=== PATIENT | female | born 1995 | race Caucasian/White ===

== ENCOUNTER → 2018-06-24 10:41 | Outpatient (CLI) | payer BC, SELFPAY ==
[2018-06-28 04:07] LABS: Neisseria gonorrhoeae, NAA Negative (Negative)
== END ==
PROVIDERS: Visit Provider Nurse Practitioner Obstetrics & Gynecology
DX: Z01.419 Encounter for gynecological examination (general) (routine) without abnormal findings (principal)
CPT/HCPCS: 87491; 87591

== ENCOUNTER → 2018-08-20 16:18 | Outpatient (CLI) | payer BC, SELFPAY ==
[2018-08-20 20:39] LABS: HCG,Quantitative 77344 mIU/mL
== END ==
PROVIDERS: Visit Provider Nurse Practitioner Obstetrics & Gynecology
DX: Z32.00 Encounter for pregnancy test, result unknown (principal)
CPT/HCPCS: 36415; 84702

== ENCOUNTER → 2018-08-24 17:07 | Outpatient (CLI) | payer BC, OTHER, SELFPAY ==
[2018-08-24 17:34] LABS: Basophils % 0.4 % (0.1-2.0); Eosinophils # 0.1 K/mm3 (0.0-0.4); Hematocrit 39.5 % (37.0-47.0); Lymphocytes # 2.1 K/mm3 (0.7-4.5); Lymphocytes % 24.1 % (10-50); Mean Corpuscular HGB Conc 32.9 g/dL (31.8-35.4); Mean Corpuscular Hemoglobin 30.4 pg (27.0-31.2); Mean Corpuscular Volume 92.3 fl (81-99); Mean Platelet Volume 6.8 fl (7.4-10.4); Monocytes # 0.4 K/mm3 (0.1-1.0); Neutrophils # 6.2 K/mm3 (1.8-7.8); Neutrophils % 70.4 % (37.0-80.0); Platelet Count 262 K/mm3 (142-424); Red Blood Count 4.28 M/mm3 (4.20-5.40); Red Cell Distribution Width 12.6 % (11.5-17.5); White Blood Count 8.8 K/mm3 (4.5-13.0)
[2018-08-26 07:20] LABS: HIV Screen 4th Generation wRfx Non Reactive (Non Reactive)
[2018-08-26 09:43] LABS: Hepatitis B Surface Antigen Negative (Negative); Hepatitis C Antibody <0.1 s/co ratio (0.0-0.9); Rubella Antibodies, IgG <0.90 index (Immune >0.99)
[2018-08-27 06:54] LABS: Rapid Plasma Reagin Ab Titer Non Reactive (NonRea<1:1)
[2018-08-27 15:00] LABS: Neisseria gonorrhoeae, NAA Negative (Negative)
== END ==
PROVIDERS: Visit Provider Nurse Practitioner Obstetrics & Gynecology
DX: Z34.90 Encounter for supervision of normal pregnancy, unspecified, unspecified trimester (principal)
CPT/HCPCS: 36415; 85025; 86592; 86703; 86762; 86850; 87340; 87380; 87491; 87591; G0432

== ENCOUNTER → 2018-09-03 10:12 | Outpatient (CLI) | payer BC, OTHER, SELFPAY ==
--- NOTE | 2018-09-03 10:16 | US_ITS ---
US OB transvaginal HISTORY: ITS.REASON: US OB Dates ORDERING PHYSICIAN: Can Rogers MD PATIENT AGE: 22 years COMPARISON: None FINDINGS: An intrauterine gestational sac is present with a pole with a crown-rump length of 3.27cm correlating to gestational age of 10w2d. heart tones are present with an FHR of 167 bpm's. Yolk sac is noted. The amnion and chorion have not yet fused. Adnexa: Unremarkable. IMPRESSION: Live intrauterine gestation at 10 weeks 2 days as described above. Estimated due date by Ultrasound is 03/30/2019
== END ==
PROVIDERS: PCP Family Medicine Addiction Medicine; Visit Provider Nurse Practitioner Obstetrics & Gynecology
DX: O26.841 Uterine size-date discrepancy, first trimester (principal)
CPT/HCPCS: 76817

== ENCOUNTER → 2018-11-10 14:49 | Outpatient (CLI) | payer BC, OTHER, SELFPAY ==
--- NOTE | 2018-11-10 14:52 | US_ITS ---
US OB /maternal detail: INDICATION: ITS.REASON: US OB Complete ORDERING PHYSICIAN: Can Rogers MD PATIENT AGE: 23 years TECHNIQUE: ultrasound transabdominal scanning. COMPARISON: No previous relevant studies. FINDINGS: Single viable intrauterine gestation. Cephalic position. Placenta: Posterior High placenta grade 1. There is average amount fluid. The cervix appears satisfactory. Closed and measuring 5 cm in length. Complete survey performed and was unremarkable on the submitted images as in PACS. No discrete anomalies identified on survey imaging by technologist. Active fetus. Three-vessel cord with satisfactory umbilical cord insertion. 4- chamber heart noted. Survey of brain & ventricles unremarkable. Face and neck survey unremarkable. Diaphragm and chest views unremarkable. Abdomen: Both kidneys noted and unremarkable. Stomach noted and satisfactory. Spine: Survey of the spine satisfactory with no anomalies identified nor imaged. Both arms and legs noted. Amniotic Fluid: Adequate. Maternal adnexa: No significant findings. Measurements: Average ultrasound age 20w0d. Gestational Age 20w0d. Estimated due date by ultrasound age 0703/30/2019. Estimated weight 319 grams. BPD = 20w0d OFD = 20w5d HC = 19w5d AC = 20w0d FL = 20w0d Growth Percentile= 39% Heart Rate = 144 Cerebellum = 20w2d Humerus = 20w1d HC/AC is 1.17 (1.09-1.26). CI is 75% (70-86%). FL/BPD is 70%. FL/AC is 22%. IMPRESSION: Single live fetus in cephalic presentation with an average ultrasound age of 20 weeks and 0 days. No obvious anomalies. Please see above for detail
== END ==
PROVIDERS: PCP Nurse Practitioner Obstetrics & Gynecology; Visit Provider Nurse Practitioner Obstetrics & Gynecology
DX: Z36.0 Encounter for antenatal screening for chromosomal anomalies (principal)
CPT/HCPCS: 76811

== ENCOUNTER 2018-12-08 12:50 | Outpatient (CLI) | payer BC, OTHER, SELFPAY ==
[2018-12-08 12:59] VITALS: BP 122/70; PULSE 95; RESP 20; O2SAT 96; BMI 30.7
[2018-12-08 13:01] VITALS: BMI 30.7
[2018-12-08 13:10] LABS: Microscopic, Urine URINE MICROSCOPIC (MICROSCOPIC)
[2018-12-08 13:24] LABS: Appearance,Urine CLEAR (Clear); Bilirubin,Urine Negative (Negative); Blood, Urine Negative (Negative); Color,Urine YELLOW (Yellow); Glucose,Urine (UA) Negative (Negative); Ketones,Urine Negative (Negative); Leukocyte Esterase,Urine Negative (Negative); Nitrate,Urine Negative (Negative); PH,Urine 6.5 (5.0-8.5); Protein,Urine Negative (Negative); Specific Gravity, Urine <= 1.005 (1.005-1.030); Urobilinogen,Urine 0.2 EU/dl (0.2)
[2018-12-08 13:37] LABS: Basophils % 0.3 % (0.1-2.0); Eosinophils # 0.1 K/mm3 (0.0-0.4); Eosinophils % 1.6 % (0.1-12.0); Hematocrit 37.7 % (37.0-47.0); Hemoglobin 12.7 g/dL (12.2-16.2); Lymphocytes # 1.8 K/mm3 (0.7-4.5); Lymphocytes % 21.9 % (10-50); Mean Corpuscular HGB Conc 33.6 g/dL (31.8-35.4); Mean Corpuscular Hemoglobin 30.9 pg (27.0-31.2); Mean Corpuscular Volume 91.8 fl (81-99); Mean Platelet Volume 7.3 fl (7.4-10.4); Monocytes # 0.4 K/mm3 (0.1-1.0); Monocytes % 4.3 % (1.7-9.3); Neutrophils # 5.9 K/mm3 (1.8-7.8); Platelet Count 270 K/mm3 (142-424); Red Blood Count 4.11 M/mm3 (4.20-5.40); Red Cell Distribution Width 13.3 % (11.5-17.5); White Blood Count 8.1 K/mm3 (4.8-10.8)
[2018-12-08 13:44] LABS: Alanine Aminotransferase 21 U/L (12-78); Albumin Level 2.8 gm/dL (3.4-5.0); Albumin/Globulin Ratio 0.7 (1.1-1.8); Alkaline Phosphatase 75 U/L (46-116); Anion Gap 14.9 mEq/L (5-15); Aspartate Amino Transferase 20 U/L (15-37); Bilirubin,Total 0.3 mg/dL (0.2-1.0); Blood Urea Nitrogen 8 mg/dL (7-18); Carbon Dioxide 23 mmol/L (21.0-32.0); Chloride 104 mmol/L (98-107); Creatinine Clearance Estimated 222 mL/min (50-200); Creatinine,Serum 0.53 mg/dL (0.55-1.02); Estimated Glomerular Filt Rate 146 ml/min (>60); GFR (African American) 176 ML/MIN (>60); Globulin 4.2 gm/dl (1.3-3.2); Glucose 89 mg/dL (74-106); Potassium 3.9 mmoL/L (3.5-5.1); Sodium 138 mmol/L (136-145)
[2018-12-08 14:47] LABS: Bacteria,Urine Trace /lpf; RBC,Urine Occasional #/hpf (0-3)
== END 2018-12-08 14:35 | disposition home or self-care (01) ==
LOC: OBOUT 12:52 → OB 12:53
PROVIDERS: Visit Provider Nurse Practitioner Obstetrics & Gynecology
DX: O26.92 Pregnancy related conditions, unspecified, second trimester (principal); Z3A.24 24 weeks gestation of pregnancy; R11.0 Nausea; R42 Dizziness and giddiness
CPT/HCPCS: 59025; 80053; 81001; 85025; 96360

== ENCOUNTER 2018-12-10 22:05 | Outpatient (CLI) | payer BC, OTHER, SELFPAY ==
[2018-12-10 22:52] VITALS: BMI 29.8
[2018-12-10 22:57] VITALS: BP 139/75; PULSE 110; RESP 18; TEMP 37.2; O2SAT 99
[2018-12-10 23:00] LABS: Microscopic, Urine URINE MICROSCOPIC (MICROSCOPIC)
[2018-12-10 23:03] LABS: Appearance,Urine CLEAR (Clear); Bilirubin,Urine Negative (Negative); Blood, Urine Negative (Negative); Color,Urine YELLOW (Yellow); Glucose,Urine (UA) Negative (Negative); Ketones,Urine 3+ (Negative); Leukocyte Esterase,Urine Negative (Negative); Nitrate,Urine Negative (Negative); Protein,Urine Negative (Negative); Specific Gravity, Urine 1.025 (1.005-1.030); Urobilinogen,Urine 0.2 EU/dl (0.2)
[2018-12-10 23:07] LABS: Bacteria,Urine Trace /lpf; WBC,Urine Occasional #/hpf (0-3)
[2018-12-10 23:08] LABS: Anion Gap 16.6 mEq/L (5-15); Blood Urea Nitrogen 9 mg/dL (7-18); Carbon Dioxide 23 mmol/L (21.0-32.0); Chloride 100 mmol/L (98-107); Creatinine Clearance Estimated 222 mL/min (50-200); Creatinine,Serum 0.53 mg/dL (0.55-1.02); Estimated Glomerular Filt Rate 146 ml/min (>60); GFR (African American) 176 ML/MIN (>60); Glucose 83 mg/dL (74-106); Potassium 3.6 mmoL/L (3.5-5.1); Sodium 136 mmol/L (136-145)
[2018-12-10 23:14] LABS: Basophils % 0.2 % (0.1-2.0); Eosinophils % 0.1 % (0.1-12.0); Lymphocytes # 0.8 K/mm3 (0.7-4.5); Lymphocytes % 7.6 % (10-50); Mean Corpuscular HGB Conc 34.1 g/dL (31.8-35.4); Mean Corpuscular Hemoglobin 30.8 pg (27.0-31.2); Mean Corpuscular Volume 90.3 fl (81-99); Mean Platelet Volume 6.8 fl (7.4-10.4); Monocytes # 0.3 K/mm3 (0.1-1.0); Neutrophils # 8.9 K/mm3 (1.8-7.8); Neutrophils % 89.1 % (37.0-80.0); Platelet Count 253 K/mm3 (142-424); Red Blood Count 4.21 M/mm3 (4.20-5.40); Red Cell Distribution Width 13.4 % (11.5-17.5)
[2018-12-10 23:21] VITALS: BMI 29.8
[2018-12-10 23:24] LABS: MANUAL DIFFERENTIAL MANUAL DIFFERENTIAL (MANUAL DIFF)
[2018-12-11 03:50] LABS: Anisocytosis 1+; Lymphocytes % 12 % (10-50); Neutrophils % 88 % (42-76); Platelet Estimate Normal; Total Cells Counted 100
== END 2018-12-11 00:15 | disposition home or self-care (01) ==
LOC: OBOUT 22:10 → OB 22:11
PROVIDERS: PCP Nurse Practitioner Obstetrics & Gynecology; Visit Provider Nurse Practitioner Obstetrics & Gynecology
DX: O26.892 Other specified pregnancy related conditions, second trimester (principal); Z3A.24 24 weeks gestation of pregnancy; R11.2 Nausea with vomiting, unspecified; M54.5 Low back pain
CPT/HCPCS: 59025; 80048; 81001; 85007; 85025; 87275; 87276; 96360; J2405

== ENCOUNTER → 2019-01-04 08:13 | Outpatient (CLI) | payer BC, OTHER, SELFPAY ==
[2019-01-04 08:37] LABS: Glucose,Fasting 81 mg/dL (60-105)
[2019-01-04 10:21] LABS: Glucose 1 Hour 101 mg/dL (74-106)
== END ==
PROVIDERS: Visit Provider Nurse Practitioner Obstetrics & Gynecology
DX: Z34.90 Encounter for supervision of normal pregnancy, unspecified, unspecified trimester (principal)
CPT/HCPCS: 36415; 82951

== ENCOUNTER → 2019-03-08 16:50 | Outpatient (CLI) | payer BC, SELFPAY | PROVIDERS: Visit Provider Nurse Practitioner Obstetrics & Gynecology | DX: Z34.90 Encounter for supervision of normal pregnancy, unspecified, unspecified trimester (principal) | CPT/HCPCS: 86403 ==

== ENCOUNTER 2019-03-22 23:52 | Inpatient (IN) ==
[2019-03-23 02:10] LABS: Basophils % 0.3 % (0.1-2.0); Eosinophils # 0.2 K/mm3 (0.0-0.4); Hematocrit 36.7 % (37.0-47.0); Hemoglobin 11.7 g/dL (12.2-16.2); Lymphocytes # 1.8 K/mm3 (0.7-4.5); Lymphocytes % 24.1 % (10-50); Mean Corpuscular HGB Conc 31.8 g/dL (31.8-35.4); Mean Corpuscular Volume 92.3 fl (81-99); Mean Platelet Volume 8.2 fl (7.4-10.4); Monocytes # 0.4 K/mm3 (0.1-1.0); Monocytes % 4.7 % (1.7-9.3); Neutrophils # 5.2 K/mm3 (1.8-7.8); Neutrophils % 68.9 % (37.0-80.0); Platelet Count 259 K/mm3 (142-424); Red Blood Count 3.98 M/mm3 (4.20-5.40); Red Cell Distribution Width 14.2 % (11.5-17.5); White Blood Count 7.6 K/mm3 (4.8-10.8)
[2019-03-23 02:50] LABS: Microscopic, Urine URINE MICROSCOPIC (MICROSCOPIC)
[2019-03-23 02:54] LABS: Appearance,Urine CLEAR (Clear); Bilirubin,Urine Negative (Negative); Blood, Urine Negative (Negative); Color,Urine YELLOW (Yellow); Glucose,Urine (UA) Negative (Negative); Ketones,Urine Negative (Negative); Leukocyte Esterase,Urine Negative (Negative); Protein,Urine Negative (Negative); Specific Gravity, Urine 1.025 (1.005-1.030)
[2019-03-23 03:00] LABS: Bacteria,Urine Trace /lpf; Squamous Epithelial Cell,Urine Occasional #/hpf (0-5); WBC,Urine Occasional #/hpf (0-3)
[2019-03-23 03:03] LABS: Amphetamine/Metha Screen,Urine Negative ng/mL (<1000); Barbiturates Screen,Urine Negative ng/mL (<200); Benzodiazepines Screen,Urine Negative ng/mL (<200); Cannabinoid Screen,Urine Negative ng/mL (<50); Cocaine Screen,Urine Negative ng/mL (<300); Methadone Screen,Urine Negative ng/mL (<300); Opiate Screen,Urine Negative ng/mL (<300); Phencyclidine Screen,Urine Negative ng/mL (<25)
--- NOTE | 2019-03-23 05:05 | Progress Note ---
Labor Note - Subjective: Date: 03/23/19 Time: 05:04 regular contraction - Objective: NST:: Reactive Contractions:: every 2-3 minutes Cervical Dilation:: 2-3 Effacement:: 75% Station: -2 Membranes: artificially ruptured - Fetus: Monitoring?: Yes monitoring type:: External - Assessment: Labor progressing?: Yes Cephalopelvic disproportion?: No Patient Problems: All Active Problems (Updated 03/15/19 @ 16:53 by Can Rogers MD) (Acute) - Plan: Anesthesia for epidural?: Yes Continue to labor down?: Yes Plan for ?: No Continue to monitor?: Yes Start pushing?: No
--- NOTE | 2019-03-23 05:07 | History & Physical Report ---
OB - H&P: HPI Antepartum - History of Present Illness Chief complaint: Contractions History of present illness: She is a 23-year-old 3 para 2 at 39 weeks gestational age. She arrived having regular contractions. She is josephine every 2 minutes. She is found to be 2 to 3 cm dilated 75% Station -2. - History of Present Criteria for establishing EDC:: LMP confirmed by 1st trimester US care: good care Ultrasounds: normal 1st trimester US, normal mid trimester US Obstetrical complications: none Medical complications: none - Labs Blood type: O (+) positive Rubella: nonimmune RPR/VDRL: nonreactive GBS status: negative HBsAG: negative [facility] History I have reviewed the patient's past medical history: Yes Medical History: Reports:: Depression *Have you ever received a pneumonia vaccine?: No *Have you received a flu vaccine this season?: Yes Other Surgeries: Yes: Other. No: Amputation: No Fractures: No - *Social History Smoking Status: Never smoker Alcohol Intake: never Substance Use Type: denies use *Occupational Status:: unemployed *Travel in the last 8 weeks: None - Psychiatric History Pschychiatric History:: Reports:: Depression Family Hx:: Diabetes, Coronary Artery Disease, Cancer, Stroke Para: 2 Review of Systems - Review of Systems Review of systems:: pertinent systems reviewed and negative unless documented below Meds Home Medications Medication Instructions Recorded Confirmed Type 1 tab PO DAILY 09/27/18 03/15/19 History vitamin,calcium,rwhztdcr-ebeo-rwmqt acid tablet Ferrous Sulfate 325 mg PO DAILY 12/08/18 03/15/19 History ranitidine 150 mg tablet 150 mg PO DAILY #60 tab 02/21/19 03/15/19 Rx Allergies Allergy/AdvReac Type Severity Reaction Status Date / Time acetaminophen [From Percocet] Allergy Unknown itching Verified 03/15/19 16:16 oxycodone [From Percocet] Allergy Unknown itching Verified 03/15/19 16:16 OB - H&P: Exam - Constitutional no acute distress - Routine HEENT Exam Head: Present: normocephalic Eye: Present: EOMI, PERRL ENT: Present: mucous membranes moist - Routine Neck Exam Present: supple, full ROM - Routine Respiratory Exam Absent: accessory muscle use (good air entry bilaterally), respiratory distress, wheezes, crackles - Routine Cardiovascular Exam Present: RRR. Absent: murmur - Routine Abdominal Exam Present: soft, normoactive bowel sounds. Absent: tenderness, distended, guarding - Routine Rectal Exam Patient deferred: visual exam, digital exam - Routine Exam Patient deferred: external exam, groin exam, perineal exam - Routine Extremities Exam Present: full ROM. Absent: cyanosis, edema - Routine Skin Exam Present: intact. Absent: cyanosis - Routine Neurological Exam Present: alert, oriented X3 - Routine Psychiatric Exam Present: normal affect OB - Results - Labs Labs: Short CBC 03/23/19 Range/Units 01:56 WBC 7.6 (4.8-10.8) K/mm3 Hgb 11.7 L (12.2-16.2) g/dL Hct 36.7 L (37.0-47.0) % Plt Count 259 (142-424) K/mm3 Urine 03/23/19 Range/Units 02:00 Urine Color Yellow (Yellow) Urine Appearance Clear (Clear) Urine pH 6.0 (5.0-8.5) Ur Specific [employer] 1.025 (1.005-1.030) Urine Protein Negative (Negative) Urine Glucose (UA) Negative (Negative) OB - A/P Antepartum (1) Normal delivery Current visit: Yes Status: Acute - Additional Plan Planning to breastfeed?: Yes Plan: expectant management
--- NOTE | 2019-03-23 09:02 | Progress Note ---
Labor Note - Subjective: Date: 03/23/19 Time: 08:30 regular contraction - Objective: NST:: Reactive Effacement:: 100% Membranes: artificially ruptured - Assessment: Labor progressing?: Yes Cephalopelvic disproportion?: No Patient Problems: All Active Problems Normal delivery (Acute) (Acute) - Plan: Anesthesia for epidural?: No Plan for ?: No Continue to monitor?: Yes Start pushing?: No
--- NOTE | 2019-03-23 11:22 | Progress Note ---
[facility] Anesthesia Checklist - Patient Identification Patient Identification: Arm Band, Verbal (Name & ) - Structural Data Admitted From: Inpatient Planned Operative Procedure/s: labor epidural Consent for Planned Operative Procedure(s) Verified: Yes Verified Documents: History and Physical - Additional verifications Patient : Yes Anesthesia Reactions: No Hx Blood Transfusions: No Blood Transfusion Reaction: No Cephalosporin Allergy: No Previous Colonoscopy: No - Cardiovascular Assessment Heart Sounds: S1 & S2 Pulse Strength: Baseline Pulse Rhythm: Regular Peripheral Edema: Yes - Airway Assessment C-Spine Mobility Assessed: Yes TMJ Mobility Assessed: Yes Dentition: Good Dentition - Neurological Assessment Level of Consciousness: Awake, Alert, Appropriate Hx Seizures: No Numbness or tingling in extremities: No - Anesthesia Plan Anesthesia Risk discussed: Yes Anesthesia Plan: Verified ASA Class: II Anesthesia Type: Epidural [facility] History I have reviewed the patient's past medical history: Yes Medical History: Reports:: Depression *Have you ever received a pneumonia vaccine?: No *Have you received a flu vaccine this season?: Yes Other Surgeries: Yes: Other. No: Amputation: No Fractures: No - *Social History Smoking Status: Never smoker Alcohol Intake: never Substance Use Type: denies use *Occupational Status:: unemployed *Travel in the last 8 weeks: None - Psychiatric History Pschychiatric History:: Reports:: Depression Family Hx:: Diabetes, Coronary Artery Disease, Cancer, Stroke Para: 2
--- NOTE | 2019-03-23 12:19 | Progress Note ---
Labor Note - Subjective: Date: 03/23/19 Time: 12:18 regular contraction - Objective: NST:: Reactive Contractions:: every 2-3 minutes Cervical Dilation:: 9 Effacement:: 100% Station: 0 Membranes: artificially ruptured - Fetus: Monitoring?: Yes monitoring type:: External - Assessment: Labor progressing?: Yes Cephalopelvic disproportion?: No Patient Problems: All Active Problems Normal delivery (Acute) (Acute) - Plan: Anesthesia for epidural?: Yes Continue to labor down?: Yes Plan for ?: No Continue to monitor?: Yes Start pushing?: No
--- NOTE | 2019-03-23 13:37 | Procedure Note ---
- Delivery Note Delivery Date:: 03/23/19 Delivery Time:: 13:27 Anesthesia Type: Epidural Was labor medically induced?: No Induction method: none Gestational age (weeks): 39 delivered prior to 39 weeks?: No Justification for early elective delivery:: Active Labor Gender: Male at 1 minute: 8 at 5 minutes: 9 AF:: Clear fluid Delivery Procedure:: She is a 23-year-old 3 para 2 at 39 weeks gestational age. She arrived having regular contractions. She was observed overnight. She had her membranes ruptured and was augmented with oxytocin. She progressed to full dilation and delivered spontaneously a liveborn male child at 1:27 PM in the afternoon of March 23, 2019. On deliver the head the anterior shoulder then delivered followed by the rest of infant's body atraumatically. The oropharynx and nasopharynx were bulb suction. The baby cried spontaneously. We allowed the cord to continue to pulsate for approximately 1 minute. The cord was then doubly clamped and cut. The baby was then placed on the mother's abdomen for further care and the nurses assigned Apgars of 8 at 1 minute and 9 at 5 minutes. We then obtained cord blood as well as cord pH. Using gentle traction on the cord and countertraction the fundus I was able to easily deliver the placenta intact. It had a normal three-vessel cord. There were no perineal or vaginal lacerations. She has O+ blood, she is rubella nonimmune. She is group B cryptococcus negative. Her senior water/wastewater engineer is Dr. Ram. Estimated blood loss is less than 200 cc. Placental Delivery Description: Spontaneous
--- NOTE | 2019-03-23 17:53 | Discharge Summary ---
General - General Admission date:: 03/23/19 Discharge date: 03/25/19 HPI HPI: She is a 23-year-old 3 now para 3 who was 39 weeks gestational age. She arrived in active labor. She is josephine every 2 minutes. Hospital Course Hospital Course: She had her membranes ruptured and progressed to full dilation. She progressed under labor epidural to full dilation and delivered spontaneously a liveborn male child at 1:27 PM in the afternoon of March 23, 2019. The baby weighed 8 pounds 6 ounces and had Apgars of 8 at 1 and 9 at 5 minutes. Baby was 20 inches long. pH was 7.42. She has O+ blood, she is rubella nonimmune and will receive MMR prior to discharge. She is group B stopcock is negative. Her childcare attendant is Dr. Ram. Her condition on discharge is stable. Rhogam Administration: Not Indicated Objective no acute distress Results Labs on day of discharge: Labs from last 24 hours 03/23/19 03/23/19 03/23/19 13:30 02:00 02:00 WBC RBC Hgb Hct MCV MCH MCHC RDW Plt Count MPV Neut % (Auto) Lymph % (Auto) [place] % (Auto) Eos % (Auto) Baso % (Auto) Neut # (Auto) Lymph # (Auto) [place] # (Auto) Eos # (Auto) Baso # (Auto) Cord ABG pH 7.42 Urine Color Yellow Urine Appearance Clear Urine pH 6.0 Ur Specific [place] 1.025 Urine Protein Negative Urine Glucose (UA) Negative Urine Ketones Negative Urine Blood Negative Urine Nitrate Negative Urine Bilirubin Negative Urine Urobilinogen 1.0 Ur Leukocyte Esterase Negative Urine WBC Occasional Ur Squamous Epith Cells Occasional Urine Bacteria Trace Urine Opiates Screen Negative Urine Methadone Screen Negative Ur Barbituates Screen Negative Ur Phencyclidine Scrn Negative Ur Amphetamines Screen Negative U Benzodiazepines Scrn Negative Urine Cocaine Screen Negative U Marijuana (THC) Screen Negative Blood Type Antibody Screen 03/23/19 03/23/19 01:56 01:56 WBC 7.6 RBC 3.98 L Hgb 11.7 L Hct 36.7 L MCV 92.3 MCH 29.3 MCHC 31.8 RDW 14.2 Plt Count 259 MPV 8.2 Neut % (Auto) 68.9 Lymph % (Auto) 24.1 [place] % (Auto) 4.7 Eos % (Auto) 2.0 Baso % (Auto) 0.3 Neut # (Auto) 5.2 Lymph # (Auto) 1.8 [place] # (Auto) 0.4 Eos # (Auto) 0.2 Baso # (Auto) 0.0 Cord ABG pH Urine Color Urine Appearance Urine pH Ur Specific [place] Urine Protein Urine Glucose (UA) Urine Ketones Urine Blood Urine Nitrate Urine Bilirubin Urine Urobilinogen Ur Leukocyte Esterase Urine WBC Ur Squamous Epith Cells Urine Bacteria Urine Opiates Screen Urine Methadone Screen Ur Barbituates Screen Ur Phencyclidine Scrn Ur Amphetamines Screen U Benzodiazepines Scrn Urine Cocaine Screen U Marijuana (THC) Screen Blood Type O Positive Antibody Screen Negative DS: Diagnosis - Discharge Diagnosis (1) Normal delivery Status: Acute Discharge Plan - Patient Discharge Instructions ACTIVITY: Ambulate as tolerated DIET: continue same diet - Follow up Plan Disposition: Home, Self-Shelter Medications: Home Medications Medication Instructions Recorded Confirmed Type 1 tab PO DAILY 09/27/18 03/23/19 History vitamin,calcium,bpigorlp-bhsv-jbyaw acid tablet Ferrous Sulfate 325 mg PO DAILY 12/08/18 03/23/19 History raNITIdine HCl [Ranitidine HCl] 150 mg PO DAILY 03/23/19 03/23/19 History Prescriptions/Medication Reconciliation: Continued vitamin,calcium,ismwnhrb-zjce-sccgf acid tablet 1 tab PO DAILY raNITIdine HCl [Ranitidine HCl] 150 mg PO DAILY Ferrous Sulfate 325 mg PO DAILY
[2019-03-24 07:40] LABS: Hematocrit 37.6 % (37.0-47.0); Hemoglobin 11.9 g/dL (12.2-16.2)
--- NOTE | 2019-03-24 08:52 | Progress Note ---
Internal Medicine - PN: Subj *Date: 03/24/19 *Time: 08:51 (This is day #1. The patient is afebrile. Vital signs stable. Abdomen soft. Uterine fundus involuting well. Lochia normal. The baby is breast-feeding and doing well. Hemoglobin 11.9 g. During the night the patient's uncle suddenly, and the patient considered early discharge. However, upon reflection she elects to stay until tomorrow.) Exam Vital signs and Labs for Last 24 Hours: Temp Pulse Resp BP Pulse Ox 97.8 F 88 17 129/78 99 03/24/19 07:52 03/24/19 07:52 03/24/19 07:52 03/24/19 07:52 03/24/19 07:52 Laboratory Results - last 24 hr 03/23/19 13:30: Cord ABG pH 7.42 03/24/19 07:10: Hgb 11.9 L, Hct 37.6 I & O for Last 24 hours: Intake & Output 03/21/19 03/22/19 03/23/19 03/24/19 11:59 11:59 11:59 11:59 Weight 199 lb Assessment and Plan (1) Normal delivery Current visit: Yes Status: Acute Category: Medical Code(s): O80 - Encounter for full-term uncomplicated delivery
[2019-03-25 03:12] VITALS: BP 115/63
--- NOTE | 2019-03-25 06:25 | Progress Note ---
Internal Medicine - PN: Subj *Date: 03/25/19 *Time: 06:24 (This is day #2. The patient is afebrile. Vital signs stable. Abdomen soft. Lochia normal. Uterine fundus involuting well. Breast- feeding. Hemoglobin 11.9 g, but clinically stable. She will be discharged today.) Exam Vital signs and Labs for Last 24 Hours: Temp Pulse Resp BP Pulse Ox 97.7 F 59 L 18 115/63 98 03/25/19 03:03 03/25/19 03:03 03/25/19 03:03 03/25/19 03:03 03/24/19 19:52 Laboratory Results - last 24 hr 03/24/19 07:10: Hgb 11.9 L, Hct 37.6 I & O for Last 24 hours: Intake & Output 03/22/19 03/23/19 03/24/19 03/25/19 11:59 11:59 11:59 11:59 Weight 199 lb Assessment and Plan (1) Normal delivery Current visit: Yes Status: Acute Category: Medical Code(s): O80 - Encounter for full-term uncomplicated delivery
== END 2019-03-25 12:00 | disposition home or self-care (01) | DRG 807 ==
LOC: OB 03-23 01:23
PROVIDERS: ADMIT Nurse Practitioner Obstetrics & Gynecology; ATTEND Nurse Practitioner Obstetrics & Gynecology
CPT/HCPCS: 59025; 80305; 81001; 82800; 85014; 85018; 85025; 86850; 90707; 94761; J0595

== ENCOUNTER → 2020-01-11 16:14 | Outpatient (CLI) | payer BC, SELFPAY ==
[2020-01-13 05:37] LABS: Hep A Ab, IgM Negative (Negative); Hepatitis B Core Antibody IgM Negative (Negative); Hepatitis B Surface Antigen Negative (Negative)
[2020-01-13 06:18] LABS: HIV Screen 4th Generation wRfx Non Reactive (Non Reactive); Hepatitis C Antibody <0.1 s/co ratio (0.0-0.9)
[2020-01-13 14:34] LABS: HSV 2 IgG, Type Spec <0.91 index (0.00-0.90); Rapid Plasma Reagin Ab Titer Non Reactive (NonRea<1:1)
[2020-01-14 11:16] LABS: Neisseria gonorrhoeae, NAA Negative (Negative)
== END ==
PROVIDERS: Visit Provider Nurse Practitioner Obstetrics & Gynecology
DX: Z72.51 High risk heterosexual behavior (principal)
CPT/HCPCS: 36415; 80074; 86592; 86695; 86703; 86790; 87491; 87591; G0432

== ENCOUNTER → 2021-03-01 13:04 | Outpatient (CLI) | payer BC, SELFPAY ==
[2021-03-01 13:25] LABS: Basophils # 0.1 K/mm3 (0-0.2); Basophils % 0.8 % (0.1-2.0); Eosinophils # 0.2 K/mm3 (0.0-0.4); Eosinophils % 2.2 % (0.1-12.0); Hematocrit 42.3 % (37.0-47.0); Lymphocytes # 2.1 K/mm3 (0.7-4.5); Mean Corpuscular HGB Conc 33.3 g/dL (31.8-35.4); Mean Corpuscular Hemoglobin 30.2 pg (27.0-31.2); Mean Platelet Volume 7.5 fl (7.4-10.4); Monocytes # 0.3 K/mm3 (0.1-1.0); Monocytes % 4.5 % (1.7-9.3); Neutrophils # 4.8 K/mm3 (1.8-7.8); Neutrophils % 64.7 % (37.0-80.0); Platelet Count 265 K/mm3 (142-424); Red Blood Count 4.64 M/mm3 (4.20-5.40); Red Cell Distribution Width 12.5 % (11.5-17.5); White Blood Count 7.5 K/mm3 (4.8-10.8)
[2021-03-01 13:51] LABS: HCG Qualitative, Serum Negative (Negative)
[2021-03-01 13:54] LABS: Anion Gap 8.3 mEq/L (5-15); Blood Urea Nitrogen 15 mg/dl (7-17); Calcium 9.1 mg/dl (8.4-10.2); Carbon Dioxide 28 mmol/L (22.0-30.0); Chloride 107 mmol/L (98-107); Estimated Glomerular Filt Rate 78 ml/min (>60); GFR (African American) 94 ML/MIN (>60); Glucose 97 mg/dl (74-100); Potassium 4.3 mmoL/L (3.5-5.1); Sodium 139 mmol/L (136-145)
== END ==
PROVIDERS: Visit Provider Nurse Practitioner Obstetrics & Gynecology
DX: Z01.818 Encounter for other preprocedural examination (principal); Z11.52 Encounter for screening for COVID-19; R87.613 High grade squamous intraepithelial lesion on cytologic smear of cervix (HGSIL)
CPT/HCPCS: 36415; 80048; 84703; 85025; U0003

== ENCOUNTER → 2021-03-04 07:24 | Day surgery (SDC) | payer BC, SELFPAY ==
[2021-02-26 12:13] VITALS: BMI 33.3
--- NOTE | 2021-03-04 08:39 | SUR.PREOP ---
Patient was cancelled by Dr Rogers due to patient having broken ankle over the weekend and had surgery to repair. Dr Rogers spoke with patient and advised to reschedule due to positioning.
== END ==
PROVIDERS: PCP Family Medicine; Visit Provider Nurse Practitioner Obstetrics & Gynecology
PROC: 0UBC7ZZ Excision of Cervix, Via Natural or Artificial Opening (ICD-10-PCS; CPT 57520; principal; 2021-03-04 08:45)
DX: Z53.8 Procedure and treatment not carried out for other reasons (principal)

== ENCOUNTER 2021-05-13 07:25 | Day surgery (SDC) | payer BC, SELFPAY ==
[2021-05-09 11:51] VITALS: BMI 34.2
[2021-05-13] VITALS (9 sets, daily range): BP systolic 123–166; BP diastolic 66–85; PULSE 59–119; RESP 14–18; TEMP 36.1–37.1; O2SAT 99–100
--- NOTE | 2021-05-13 07:01 | HMH.ANESCL ---
[facility] Anesthesia Checklist - Patient Identification Patient Identification: Arm Band - Structural Data Admitted From: Home Planned Operative Procedure/s: Cone biopsy Consent for Planned Operative Procedure(s) Verified: Yes - NPO Status Verified Time NPO: 00:00 - Additional verifications Anesthesia Reactions: No Hx Blood Transfusions: No Blood Transfusion Reaction: No - Airway Assessment C-Spine Mobility Assessed: Yes TMJ Mobility Assessed: Yes Dentition: Good Dentition - Neurological Assessment Level of Consciousness: Awake Hx Seizures: No Numbness or tingling in extremities: No - Anesthesia Plan Anesthesia Risk discussed: Yes Anesthesia Plan: Verified ASA Class: II Anesthesia Type: General [facility] History I have reviewed the patient's past medical history: Yes Medical History: Reports:: Depression Denies:: Cancer, Diabetes Mellitus Type 1, Diabetes Mellitus Type 2, Internal Pacemaker, MRSA, Seizures *Have you ever received a pneumonia vaccine?: No *Have you received a flu vaccine this season?: No Other Medical History: Denies: Blood Transfusion Reaction Anesthesia experience/problems:: None Other Surgeries: Yes: Other. No: , Pacemaker Amputation: No Fractures: No - *Social History Last grade of school completed: High school graduate Smoking Status: Never smoker Alcohol Intake: current Alcohol Intake Frequency:: holidays/special occasions only Substance Use Type: denies use *Occupational Status:: employed Housing: house Household Members: family *Travel in the last 8 weeks: None - Psychiatric History Pschychiatric History:: Reports:: Depression Family Hx:: No significant family history
[2021-05-13 07:35] LABS: Coronavirus 19, PCR Not Detected (NotDetected); Influenza A, PCR Not Detected (NotDetected); Influenza B, PCR Not Detected (NotDetected)
[2021-05-13 08:04] LABS: Basophils # 0.1 K/mm3 (0-0.2); Basophils % 0.8 % (0.1-2.0); Eosinophils # 0.2 K/mm3 (0.0-0.4); Eosinophils % 2.9 % (0.1-12.0); Hemoglobin 14.3 g/dL (12.2-16.2); Lymphocytes % 30.7 % (10-50); Mean Corpuscular HGB Conc 32.5 g/dL (31.8-35.4); Mean Corpuscular Hemoglobin 30.7 pg (27.0-31.2); Mean Corpuscular Volume 94.5 fl (81-99); Mean Platelet Volume 7.8 fl (7.4-10.4); Monocytes # 0.4 K/mm3 (0.1-1.0); Monocytes % 5.4 % (1.7-9.3); Neutrophils % 60.2 % (37.0-80.0); Platelet Count 287 K/mm3 (142-424); Red Blood Count 4.66 M/mm3 (4.20-5.40); Red Cell Distribution Width 12.8 % (11.5-17.5); White Blood Count 6.6 K/mm3 (4.8-10.8)
[2021-05-13 08:36] LABS: Urine Pregnancy, HCG Qual. Negative (Negative)
[2021-05-13 08:46] LABS: Chloride 105 mmol/L (98-107); Potassium 4.4 mmoL/L (3.5-5.1); Sodium 140 mmol/L (136-145)
[2021-05-13 08:49] LABS: Anion Gap 12.4 mEq/L (5-15); Blood Urea Nitrogen 19 mg/dl (7-17); Calcium 9.1 mg/dl (8.4-10.2); Carbon Dioxide 27 mmol/L (22.0-30.0); Creatinine Clearance Estimated 161 mL/min (50-200); Estimated Glomerular Filt Rate 89 ml/min (>60); GFR (African American) 108 ML/MIN (>60); Glucose 97 mg/dl (74-100)
--- NOTE | 2021-05-13 09:23 | HMH.OPNOTE ---
Date of procedure: 05/13/21 Pre-op Diagnosis:: High-grade squamous intraepithelial lesion Post-op Diagnosis:: High-grade squamous intraepithelial lesion Procedure performed:: Cone biopsy and endocervical curettage, removal of Mirena IUD. Surgeon:: Can Rogers MD Inspector Optical Instrument(s):: None BILLBOARD ERECTOR HELPER:: Jake Rosenbaum Anesthesia: LMA Estimated blood loss (mL): 25 Clinical Note:: She is a 25-year-old 3 para 3 who had HGSIL on a Pap smear confirmed with biopsy. As result of that she was offered cone biopsy and endocervical curettage. Operative findings:: She had a normal-appearing cervix. There were some acetowhite areas on application Lugol solution. Operative note:: She was taken the operating room where LMA anesthesia was found be adequate. She was prepped Theresa sterile fashion lithotomy position. Weighted speculum is placed in vagina and the anterior lip of the cervix was grasped with a tenaculum. I removed her Mirena IUD. I injected approximate 20 cc of 1% Xylocaine with epinephrine circumferentially about the cervix. I applied Lugol solution to the cervix. And using an 11 blade I made a circumferential incision around the cervical os approximately 12 mm in diameter. I then cut the base of this cone with a knife. This was sent to pathology. I then performed a gentle ECC. Then using cautery I cauterized the edges of the exocervix. I then inserted 4 sutures of 2-0 Vicryl circumferentially about the cervix. At the 12 o'clock position I took an outside inside bite and then from inside outside at the 3 o'clock position. I did this around the cervix 4 times. I then placed Monsel solution into the cervical os. She tolerate procedure well and was taken recovery room in excellent condition. All sponge, instrument and needle counts were correct. The estimated blood loss was approximate 25 cc. Condition: stable Disposition: PACU Specimens:: Cone biopsy. Endocervical curettage Complications:: None
--- NOTE | 2021-05-13 09:29 | HMH.ANESI ---
[facility] Anesthesia Record Part I Intake, IV Amount: 500 Estimated blood loss (mL): 25 Urine output (mL): 0 Blood Pressure: 123/81 SaO2: 100 Pulse Rate: 96 Respiratory Rate: 14 Temperature: 97.3 F Patient is:: Drowsy Stable to PACU at:: 09:23
--- NOTE | 2021-05-14 10:16 | P.PN_ITS ---
[facility] Anesthesia Record Part II Discharge Time: 09:58 Destination: Surgical Day Care (OP Surgery) PACU nurse assessment reviewed?: Yes Patient Condition:: Good Anesthesia Complications:: None Swallowing reflex intact?: Yes Cyanosis?: No Blood Pressure: 131/82 Pulse Rate: 66 Temperature: 97.3 F Mental Status: Alert & Oriented Pain level:: 2 Nausea and/or vomitting:: None Intake, IV Amount: 50
[2021-05-14 10:17] VITALS: BP 131/82; PULSE 66; TEMP 36.3
== END 2021-05-13 10:40 | disposition home or self-care (01) ==
LOC: OR 07:27
PROVIDERS: PCP Family Medicine; Visit Provider Nurse Practitioner Obstetrics & Gynecology
PROC: 0UBC7ZZ Excision of Cervix, Via Natural or Artificial Opening (ICD-10-PCS; CPT 57520; principal; 2021-05-13 07:30)
DX: R87.613 High grade squamous intraepithelial lesion on cytologic smear of cervix (HGSIL) (principal); F32.9 Major depressive disorder, single episode, unspecified; Z97.5 Presence of (intrauterine) contraceptive device; Z88.6 Allergy status to analgesic agent
CPT/HCPCS: 57500; 36415; 80048; 81025; 85025; 96374; J2405; U0003

== ENCOUNTER → 2021-11-26 11:39 | Outpatient (CLI) | payer BC, SELFPAY ==
[2021-11-26 12:26] LABS: Basophils # 0.1 K/mm3 (0-0.2); Basophils % 0.7 % (0.1-2.0); Eosinophils # 0.1 K/mm3 (0.0-0.4); Hematocrit 40.6 % (37.0-47.0); Hemoglobin 13.4 g/dL (12.2-16.2); Lymphocytes # 1.9 K/mm3 (0.7-4.5); Lymphocytes % 20.8 % (10-50); Mean Corpuscular Hemoglobin 31.2 pg (27.0-31.2); Mean Corpuscular Volume 94.5 fl (81-99); Monocytes # 0.3 K/mm3 (0.1-1.0); Monocytes % 3.5 % (1.7-9.3); Neutrophils # 6.8 K/mm3 (1.8-7.8); Platelet Count 257 K/mm3 (142-424); Red Blood Count 4.29 M/mm3 (4.20-5.40); Red Cell Distribution Width 13.3 % (11.5-17.5); White Blood Count 9.2 K/mm3 (4.8-10.8)
[2021-11-27 08:18] LABS: HIV Screen 4th Generation wRfx Non Reactive (Non Reactive)
[2021-11-27 11:14] LABS: Hepatitis B Surface Antigen Negative (Negative); Hepatitis C Antibody <0.1 s/co ratio (0.0-0.9); Rapid Plasma Reagin Ab Titer Non Reactive (NonRea<1:1)
[2021-11-28 07:35] LABS: HSV 2 IgG, Type Spec <0.91 index (0.00-0.90); Rubella Antibodies, IgG 1.83 index (Immune >0.99)
== END ==
LOC: LAB 11:40
PROVIDERS: Visit Provider Nurse Practitioner Obstetrics & Gynecology
DX: Z34.90 Encounter for supervision of normal pregnancy, unspecified, unspecified trimester (principal)
CPT/HCPCS: 36415; 85025; 86592; 86695; 86703; 86762; 86790; 86850; 87340; 87380; G0432

== ENCOUNTER → 2021-12-03 15:19 | Outpatient (CLI) | payer BC, SELFPAY ==
--- NOTE | 2021-12-03 15:20 | US_ITS ---
FINAL REPORT CLINICAL HISTORY: US OB before 14 wks for Dates/Confirmation FINDINGS: Sonographic images of the pelvis were obtained. A single, living intrauterine is noted. A yolk sac is present and measures 0.5 cm. [place] to rump length measures 1.1 cm which corresponds to 7 weeks 2 days gestation. Heartbeat is identified and measures 153 beats per minute. The right ovary measures 4.7 cm. There is a right ovarian cyst measuring 3.3 cm which may represent a corpus luteum cyst. The left ovary is within normal limits measuring 2.5 cm. IMPRESSION: Single, living, intrauterine gestation with 8 weeks 3 days gestational age. Reviewed, Interpreted and Dictated by Remy Guillen III, MD Transcribed by Melina Ladd Authenticated by Remy Guillen III, MD on 12/03/2021 04:54:[address] [facility]
== END ==
LOC: RAD 15:20
PROVIDERS: PCP Family Medicine; Visit Provider Nurse Practitioner Obstetrics & Gynecology
DX: O26.841 Uterine size-date discrepancy, first trimester (principal)
CPT/HCPCS: 76801

== ENCOUNTER → 2022-03-03 12:41 | Outpatient (CLI) | payer BC, SELFPAY ==
--- NOTE | 2022-03-03 12:41 | US_ITS ---
FINAL REPORT CLINICAL HISTORY: anatomy scan FINDINGS: There is a single live intrauterine gestation. Presentation is cephalic. The cervix is closed and measures 4.1 cm. Placenta is anterior and grade 1. Cardiac activity is confirmed at 147 bpm. Three-vessel cord with satisfactory umbilical cord insertion. Four-chamber heart is noted. brain and ventricles are unremarkable. Chest and diaphragm are unremarkable. ABDOMEN: Both kidneys are unremarkable. Stomach is unremarkable. SPINE: No anomalies identified. Both arms and legs noted. AMNIOTIC FLUID: Appropriate amount. MEASUREMENTS: ULTRASOUND AGE: 20 weeks 2 days. GESTATION AGE: 20 weeks 1 days. ESTIMATED WEIGHT: 332 g GROWTH PERCENTILE: 42% BPD: 4.8 cm consistent with 20 weeks 4 days. OFD: 6.0 cm consistent with 20 weeks 3 days. HC: 17.1 cm consistent with 19 weeks 5 days. AC: 14.9 cm consistent with 20 weeks 2 days. FL: 3.2 cm consistent with 20 weeks 1 days. CEREBELLUM: 2.0 cm consistent with 20 weeks 2 days. HUMERUS: 3.1 cm consistent with 20 weeks 2 days. Nuchal fold: 1.33 mm HC/AC: 1.14 CI: 80% FL/BPD: 67% FL/AC: 22% IMPRESSION: Single living IUP with an ultrasound age of 20 weeks 2 days. Reviewed, Interpreted and Dictated by Remy Guillen III, MD Transcribed by Avinash Belle Authenticated and [facility]
== END ==
LOC: RAD 12:41
PROVIDERS: PCP Pediatrics; Visit Provider Nurse Practitioner Obstetrics & Gynecology
DX: Z34.90 Encounter for supervision of normal pregnancy, unspecified, unspecified trimester (principal); Z3A.20 20 weeks gestation of pregnancy
CPT/HCPCS: 76811

== ENCOUNTER → 2022-04-10 09:51 | Outpatient (CLI) | payer BC, SELFPAY ==
[2022-04-10 10:57] LABS: Glucose,Fasting 87 mg/dl (74-100)
[2022-04-10 12:28] LABS: Glucose 1 Hour 124 mg/dL (74-100)
== END ==
PROVIDERS: PCP Family Medicine; Visit Provider Obstetrics & Gynecology
DX: Z34.90 Encounter for supervision of normal pregnancy, unspecified, unspecified trimester (principal)
CPT/HCPCS: 36415; 82951

== ENCOUNTER → 2022-05-13 11:31 | Outpatient (CLI) | payer BC, SELFPAY ==
[2022-05-13 13:02] LABS: Alanine Aminotransferase 16 U/L (12-78); Albumin Level 3.7 g/dl (3.5-5.0); Alkaline Phosphatase 111 U/L (38-126); Aspartate Amino Transferase 25 U/L (14-36); Bilirubin,Direct 0.2 mg/dl (0.0-0.4); Bilirubin,Total 0.2 mg/dl (0.2-1.3); Total Protein,Serum 6.5 g/dl (6.3-8.2)
== END ==
PROVIDERS: PCP Family Medicine; Visit Provider Nurse Practitioner Obstetrics & Gynecology
DX: Z34.90 Encounter for supervision of normal pregnancy, unspecified, unspecified trimester (principal)
CPT/HCPCS: 36415; 80076

== ENCOUNTER → 2022-06-26 11:36 | Outpatient (CLI) | payer BC, SELFPAY | PROVIDERS: Visit Provider Nurse Practitioner Obstetrics & Gynecology | DX: Z34.90 Encounter for supervision of normal pregnancy, unspecified, unspecified trimester (principal) | CPT/HCPCS: 86403 ==

== ENCOUNTER 2022-07-01 18:19 | Emergency (ER) | payer BC, OTHER, SELFPAY ==
[2022-07-01 18:21] VITALS: BP 132/69; PULSE 83; RESP 18; TEMP 36.9; O2SAT 98; BMI 33.1
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
[2022-07-01 19:22] VITALS: BP 128/70; PULSE 88; RESP 19; TEMP 36.9; O2SAT 98
== END 2022-07-01 19:47 | disposition home or self-care (01) ==
PROVIDERS: Emergency Provider Emergency Medicine; PCP Family Medicine
DX: O26.893 Other specified pregnancy related conditions, third trimester (principal); S39.012A Strain of muscle, fascia and tendon of lower back, initial encounter; V89.2XXA Person injured in unspecified motor-vehicle accident, traffic, initial encounter; Z3A.37 37 weeks gestation of pregnancy
CPT/HCPCS: 99282

== ENCOUNTER 2022-07-01 20:45 | Observation (INO) | payer BC, OTHER, SELFPAY ==
[2022-07-01 19:59] VITALS: BMI 32.3
[2022-07-01 20:00] VITALS: BP 132/67; PULSE 74; RESP 18; TEMP 36.8; O2SAT 100; BMI 322797.6
[2022-07-01 20:16] LABS: Microscopic, Urine URINE MICROSCOPIC (MICROSCOPIC)
[2022-07-01 20:34] LABS: Appearance,Urine SL CLOUDY (Clear); Bilirubin,Urine Negative (Negative); Blood, Urine Negative (Negative); Color,Urine YELLOW (Yellow); Glucose,Urine (UA) Negative (Negative); Ketones,Urine Negative (Negative); Leukocyte Esterase,Urine Negative (Negative); Nitrate,Urine Negative (Negative); PH,Urine 6.5 (5.0-8.5); Protein,Urine Negative (Negative); Urobilinogen,Urine 0.2 EU/dl (0.2)
[2022-07-01 20:44] LABS: Amphetamine/Metha Screen,Urine Negative ng/ml (<1000); Barbiturates Screen,Urine Negative ng/ml (<200)
[2022-07-01 20:45] LABS: Benzodiazepines Screen,Urine Negative ng/ml (<200); Cannabinoid Screen,Urine Negative ng/ml (<50)
[2022-07-01 20:46] LABS: Cocaine Screen,Urine Negative ng/ml (<300)
[2022-07-01 20:47] LABS: Methadone Screen,Urine Negative ng/ml (<300); Opiate Screen,Urine Negative ng/ml (<300)
[2022-07-01 20:48] LABS: Phencyclidine Screen,Urine Negative ng/ml (<25)
[2022-07-01 21:12] LABS: Squamous Epithelial Cell,Urine Occasional #/hpf (0-5)
[2022-07-01 21:28] LABS: Coronavirus 19, PCR Not Detected (NotDetected); Influenza A, PCR Not Detected (NotDetected); Influenza B, PCR Not Detected (NotDetected)
[2022-07-02 07:47] VITALS: BP 122/77; PULSE 75; RESP 17; TEMP 36.6; O2SAT 100
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
--- NOTE | 2022-07-03 13:43 | CARE MANAGER ---
Called and spoke with Doreen Kelly regarding post discharge status. Patient states that she is sore, but otherwise is doing well. She has a appt with Dr. Rosales tomorrow. She voiced no concerns or complaints at time of phone call.
== END 2022-07-02 08:57 | disposition home or self-care (01) ==
LOC: OBOUT 20:53 → OB 20:53
PROVIDERS: Admitting Provider Nurse Practitioner Obstetrics & Gynecology; PCP Family Medicine; Visit Provider Nurse Practitioner Obstetrics & Gynecology
DX: R10.9 Unspecified abdominal pain (principal); V49.49XA Driver injured in collision with other motor vehicles in traffic accident, initial encounter; Y92.413 State road as the place of occurrence of the external cause; Z33.1 Pregnant state, incidental; Z20.822 Contact with and (suspected) exposure to COVID-19
CPT/HCPCS: 59025; 80305; 81001; C9803; G0378; U0003; U0005

== ENCOUNTER 2022-07-15 05:14 | Inpatient (IN) | payer BC, SELFPAY ==
[2022-07-15 05:18] VITALS: BMI 32.8
[2022-07-15 05:30] VITALS: BMI 32.8
[2022-07-15 05:35] VITALS: BP 126/82; PULSE 100; RESP 18
[2022-07-15 06:08] LABS: Microscopic, Urine URINE MICROSCOPIC (MICROSCOPIC)
[2022-07-15 06:19] LABS: Basophils # 0.1 K/mm3 (0-0.2); Basophils % 0.7 % (0.1-2.0); Eosinophils # 0.1 K/mm3 (0.0-0.4); Eosinophils % 1.5 % (0.1-12.0); Hematocrit 38.9 % (37.0-47.0); Hemoglobin 12.9 g/dL (12.2-16.2); Lymphocytes # 2.6 K/mm3 (0.7-4.5); Lymphocytes % 29.1 % (10-50); Mean Corpuscular HGB Conc 33.3 g/dL (31.8-35.4); Mean Corpuscular Hemoglobin 31.3 pg (27.0-31.2); Mean Platelet Volume 8.1 fl (7.4-10.4); Monocytes # 0.5 K/mm3 (0.1-1.0); Monocytes % 5.3 % (1.7-9.3); Neutrophils # 5.8 K/mm3 (1.8-7.8); Neutrophils % 63.5 % (37.0-80.0); Platelet Count 224 K/mm3 (142-424); Red Blood Count 4.14 M/mm3 (4.20-5.40); Red Cell Distribution Width 13.9 % (11.5-17.5); White Blood Count 9.1 K/mm3 (4.8-10.8)
[2022-07-15 06:20] LABS: Coronavirus 19, PCR Not Detected (NotDetected); Influenza A, PCR Not Detected (NotDetected); Influenza B, PCR Not Detected (NotDetected)
[2022-07-15 06:22] LABS: Appearance,Urine CLEAR (Clear); Bilirubin,Urine Negative (Negative); Blood, Urine Negative (Negative); Color,Urine YELLOW (Yellow); Glucose,Urine (UA) Negative (Negative); Ketones,Urine Negative (Negative); Leukocyte Esterase,Urine Negative (Negative); Nitrate,Urine Negative (Negative); PH,Urine 5.5 (5.0-8.5); Protein,Urine Negative (Negative); Specific Gravity, Urine >= 1.030 (1.005-1.030); Urobilinogen,Urine 0.2 EU/dl (0.2)
[2022-07-15 06:32] LABS: Barbiturates Screen,Urine Negative ng/ml (<200)
[2022-07-15 06:33] LABS: Benzodiazepines Screen,Urine Negative ng/ml (<200)
[2022-07-15 06:34] LABS: Amphetamine/Metha Screen,Urine Negative ng/ml (<1000); Cannabinoid Screen,Urine Negative ng/ml (<50)
[2022-07-15 06:35] LABS: Cocaine Screen,Urine Negative ng/ml (<300)
[2022-07-15 06:36] LABS: Methadone Screen,Urine Negative ng/ml (<300); Opiate Screen,Urine Negative ng/ml (<300)
[2022-07-15 06:37] LABS: Phencyclidine Screen,Urine Negative ng/ml (<25)
[2022-07-15 07:06] LABS: Bacteria,Urine 2+ /lpf; WBC,Urine Occasional #/hpf (0-3)
[2022-07-15 07:42] VITALS: BP 126/83; PULSE 69; RESP 17; TEMP 36.5; O2SAT 99
--- NOTE | 2022-07-15 08:01 | HMH.PHAINT1 ---
Pharmacy Intervention Comments: MEDICATION RECONCILIATION COMPLETED ON PATIENT USING EXTERNAL FILL HISTORY FROM PHARMACY. -MARTHA GREEN, GARRYD
--- NOTE | 2022-07-15 11:29 | EXP.HP ---
History of Present Illness *Admission Date: 07/15/22 *Reason for visit:: Term , 4 para 3 *History of present illness: She is a 26-year-old 4 para 3 at 39+ weeks gestational age. She has had previous 9 pound babies. As result of that she is offered induction of labor at term. [place] out of town. PFSH PFS Medical History Depression Routine cultures positive for HSV1 Surgical History H/O LEEP Family History No significant family history Social History (Reviewed 07/15/22 @ 11: by Can Rogers MD) Smoking Status: Never smoker alcohol intake: never substance use type: denies use current occupational status: employed Travel in the last 8 weeks: None household members: family housing: house marital status: single caffeine: Yes do you feel safe at home: Yes victim of physical abuse: No victim of emotional abuse: No victim of sexual abuse: No Review of Systems Review of Systems Review of systems:: pertinent systems reviewed and negative unless documented below Meds Home Medications and Allergies Home Medications Medication Instructions Recorded Confirmed Type vit no.133-ferrous 1 tab PO DAILY Supplement 12/31/21 07/15/22 History fumarate 28 mg-folic acid 800 mcg tablet () hydroxyzine pamoate 25 mg capsule 25 mg PO TIDP PRN Anxiety 07/15/22 07/15/22 History New Prescriptions to Start Prescriptions: Allergies Allergy/AdvReac Type Severity Reaction Status Date / Time oxycodone [From Percocet] Allergy Unknown itching Verified 07/10/22 11:26 Exam Data for Last 24 hours Vital signs and Labs for Last 24 Hours: Temp Pulse Resp BP Pulse Ox 97.7 F 69 17 126/83 99 07/15/22 07:42 07/15/22 07:42 07/15/22 07:42 07/15/22 07:42 07/15/22 07:42 Laboratory Results - last 24 hr 07/15/22 06:00: WBC 9.1, RBC 4.14 L, Hgb 12.9, Hct 38.9, MCV 94.0, MCH 31.3 H, MCHC 33.3, RDW 13.9, Plt Count 224, MPV 8.1, Neut % (Auto) 63.5, Lymph % (Auto) 29.1, [place] % (Auto) 5.3, Eos % (Auto) 1.5, Baso % (Auto) 0.7, Neut # (Auto) 5.8, Lymph # (Auto) 2.6, [place] # (Auto) 0.5, Eos # (Auto) 0.1, Baso # (Auto) 0.1 07/15/22 06:00: Urine Color Yellow, Urine Appearance Clear, Urine pH 5.5, Ur Specific [place] >= 1.030, Urine Protein Negative, Urine Glucose (UA) Negative, Urine Ketones Negative, Urine Blood Negative, Urine Nitrate Negative, Urine Bilirubin Negative, Urine Urobilinogen 0.2, Ur Leukocyte Esterase Negative, Urine RBC None, Urine WBC Occasional, Ur Squamous Epith Cells 5-10, Urine Bacteria 2+ 07/15/22 06:00: SARS-CoV-2 (PCR) Not detected, Influenza A Untype (PCR) Not detected, Influenza Type B (PCR) Not detected 07/15/22 06:00: Urine Opiates Screen Negative, Urine Methadone Screen Negative, Ur Barbituates Screen Negative, Ur Phencyclidine Scrn Negative, Ur Amphetamines Screen Negative, U Benzodiazepines Scrn Negative, Urine Cocaine Screen Negative, U Marijuana (THC) Screen Negative 07/15/22 06:00: Blood Type O Positive, Antibody Screen Negative I & O for Last 24 hours: Intake & Output 07/12/22 07/13/22 07/14/22 07/15/22 11:59 11:59 11:59 11:59 Weight 197 lb Constitutional Constitutional: no acute distress *Routine HEENT Exam Head: Present normocephalic Eye: Present EOMI and PERRL ENT: Present mucous membranes moist *Routine Neck Exam Neck: Present supple; Absent lymphadenopathy *Routine Respiratory Exam Respiratory: Present CTA bilaterally *Routine Cardiovascular Exam Cardiovascular: Present RRR *Routine Abdominal Exam Abdominal: Present soft and normoactive bowel sounds; Absent tenderness *Routine Rectal Exam Rectal:: deferred *Routine Genitalia Exam Genitalia:: deferred *Routine Extremities Exam Extremities: Absent cyanosis, clubbing or edema *Routine Skin Exam Skin: Pr
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
--- NOTE | 2022-07-15 13:41 | P.PN_ITS ---
PFSH PFS Medical History Depression Routine cultures positive for HSV1 Surgical History (Reviewed 07/15/22 @ : by Can Rogers MD) H/O LEEP Family History (Reviewed 07/15/22 @ 11: by Can Rogers MD) No significant family history Social History (Reviewed 07/15/22 @ : by Can Rogers MD) Smoking Status: Never smoker alcohol intake: never substance use type: denies use current occupational status: employed Travel in the last 8 weeks: None household members: family housing: house marital status: single caffeine: Yes do you feel safe at home: Yes victim of physical abuse: No victim of emotional abuse: No victim of sexual abuse: No [facility] Anesthesia Checklist Patient Identification Patient Identification: Arm Band Structural Data Admitted From: Inpatient Planned Operative Procedure/s: labor epidural Consent for Planned Operative Procedure(s) Verified: Yes Verified Documents: Surgical Consent and History and Physical NPO Status Verified Time NPO: 00:00 Additional verifications Anesthesia Reactions: No Hx Blood Transfusions: No Blood Transfusion Reaction: No Airway Assessment C-Spine Mobility Assessed: Yes TMJ Mobility Assessed: Yes Dentition: Good Dentition Neurological Assessment Level of Consciousness: Awake and Alert Anesthesia Plan Anesthesia Risk discussed: Yes Anesthesia Plan: Verified ASA Class: II Anesthesia Type: Epidural
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
--- NOTE | 2022-07-15 15:59 | P.PCN_ITS ---
Delivery Note Delivery Date:: 07/15/22 Delivery Time:: 15:47 Anesthesia Type: Epidural Was labor medically induced?: Yes Induction method: per pitocin protocol Gestational age (weeks): 39 delivered prior to 39 weeks?: No Infant Gender: Female at 1 minute: 8 at 5 minutes: 9 Delivery Procedure:: She is a 26-year-old 4 para 3 at 39+ weeks gestational age. She lives out of town and as result of that we like to induce her labor at term. She was started on IV oxytocin had her membranes ruptured. She progressed to full dilation and delivered spontaneously a liveborn female child at 3:47 PM in the afternoon of July 15, 2022. On deliver the head it was noted that there was a nuchal cord which was easily reduced. This was followed by the anterior shoulder and the rest of the infant's body atraumatically. The baby was vigorous. The oropharynx and nasopharynx were bulb suction. We allowed the cord to continue to pulsate for approximately 1 minute. The cord is then doubly clamped and cut and the was placed on the mother's abdomen for further c are. The nurse assigned Apgars of 8 at 1 minute and 9 at 5 minutes. She received IV oxytocin using gentle traction on the cord and countertraction on the fundus I was able to easily deliver the placenta intact 3 minutes after delivery. There were no perineal or vaginal lacerations. The estimated blood loss was approximately 200 cc. Placental Delivery Description: Spontaneous
[2022-07-16 07:24] LABS: Hematocrit 40.8 % (37.0-47.0); Hemoglobin 13.5 g/dL (12.2-16.2)
[2022-07-16 08:34] VITALS: BP 127/70; PULSE 64; RESP 17; TEMP 36.8; O2SAT 98
--- NOTE | 2022-07-16 09:08 | EXP.ACUTE.PN ---
Subjective *Date: 07/16/22 *Time: 09:08 Interval history: She is 1 day from a vaginal delivery. She is doing very well. She is eating and drinking and ambulating. She is breast-feeding. Her lochia is normal. Medical Exam Vital signs and Labs for Last 24 Hours: Vital Signs Temp Pulse Resp BP Pulse Ox 07/16/22 08:34 98.2 F 64 17 127/70 98 Laboratory Results - last 24 hr 07/16/22 06:26: Hgb 13.5, Hct 40.8 I & O for Labs for Last 24 Hours: Intake & Output 07/13/22 07/14/22 07/15/22 07/16/22 11:59 11:59 11:59 11:59 Weight 197 lb Microbiology Reports for the Last 24 Hours: Microbiology 07/15/22 06:00 Urine,Clean Catch Urine Culture - Preliminary NO GROWTH AFTER 24 HOURS Head: Present atraumatic ENT: Present normal exam Neck: Present normal inspection Respiratory: Present normal respiratory effort Assessment and Plan *Assessment and plan (1) Normal delivery: Status: Acute Category: Medical Code(s): O80 - Encounter for full-term uncomplicated delivery Plan She is doing very well this morning. We will plan to send her home tomorrow.
[2022-07-16 16:44] VITALS: BP 125/57; PULSE 71; RESP 18; TEMP 36.6; O2SAT 97
--- NOTE | 2022-07-17 08:31 | EXP.DC.SUM ---
General Admission date:: 07/15/22 Discharge date: 07/17/22 HPI HPI HPI: She is a 26-year-old 4 para 3 at 39+ weeks gestational age. She has had previous 9 pound babies. As result of that she is offered induction of labor at term. She lives out of town. Hospital Course Hospital Course Hospital Course: She was started on IV oxytocin had her membranes ruptured. Under labor epidural she progressed to full dilation and delivered spontaneously a liveborn female child at 3:47 PM in the afternoon of July 15, 2022. The baby weighed 7 pounds 11 ounces and was 19-1/4 inches long. She had Apgars of 8 at 1 minute and 9 at 5 minutes. There were no perineal or vaginal lacerations. She had stenosis of the cervix and scarring of the cervix as result of her previous cone biopsy and I was able to easily break this down with my fingers. She has done well and has remained afebrile throughout her hospitalization. She is eating and drinking and ambulating. She is breast-feeding. Her lochia is normal. She has O+ blood, she is rubella immune and was group B streptococcus negative. Her airport guide Dr. Ibarra. She is discharged home to follow-up with me in approximately 2 weeks time. She will continue with her vitamins and iron. She will take [id number] analgesics as necessary. She was given the usual instructions with respect to limiting her activity, driving and sexual activity. Her condition on discharge is stable and improved. Exam Data for Last 24 hours Vital signs and Labs for Last 24 Hours: Temp Pulse Resp BP Pulse Ox 97.9 F 71 18 125/57 L 97 07/16/22 16:44 07/16/22 16:44 07/16/22 16:44 07/16/22 16:44 07/16/22 16:44 I & O for Last 24 hours: Intake & Output 07/14/22 07/15/22 07/16/22 07/17/22 11:59 11:59 11:59 11:59 Weight 197 lb Microbiology Reports for the Last 24 Hours: Microbiology 07/15/22 06:00 Urine,Clean Catch Urine Culture - Final NO GROWTH AFTER 48 HOURS Constitutional Constitutional: no acute distress *Routine HEENT Exam Head: Present normocephalic *Routine Respiratory Exam Respiratory: Present normal respiratory effort DS: Diagnosis Discharge Diagnosis (1) Normal delivery: Status: Acute Meds Home Medications and Allergies Home Medications Medication Instructions Recorded Confirmed Type vit no.133-ferrous 1 tab PO DAILY Supplement 12/31/21 07/15/22 History fumarate 28 mg-folic acid 800 mcg tablet () hydroxyzine pamoate 25 mg capsule 25 mg PO TIDP PRN Anxiety 07/15/22 07/15/22 History New Prescriptions to Start Prescriptions: Allergies Allergy/AdvReac Type Severity Reaction Status Date / Time oxycodone [From Percocet] Allergy Unknown itching Verified 07/10/22 11:26 Discharge Plan Disposition Patient Disposition: Home, Self-Care Discharge Order Discharge Orders: Discharge Order (Routine); Ordered 07/17/22 Ordered By: Can Rogers Follow up Plan Follow up with: Can Rogers MD [Staff Physician] - 07/29/22 2:00 pm Prescriptions/Medication Reconciliation: Continued 28-800 mg-mcg tablet 1 tab PO DAILY hydroxyzine pamoate 25 mg capsule 25 mg PO TIDP PRN (Reason: Anxiety) Problem Reconciliation Problems Reviewed?: Yes Patient Discharge Instructions ACTIVITY: No heavy lifting DIET: continue same diet Additional Instructions: Nothing in the vagina for 6 weeks. Drink plenty of fluids. No tub baths 6 weeks. Patient Instructions: Depression, Hemorrhage, DI for Labor and Delivery, Vaginal , DI for Pre-eclampsia, [facility] Post Discharge Instructions Providers Primary Care Provider: Dieter Queen Admit Provider: Can Rogers Attending Provider: Can Rogers
[2022-07-17 09:14] VITALS: BP 108/63; PULSE 71; RESP 18; TEMP 36.8; O2SAT 98
== END 2022-07-17 11:45 | disposition home or self-care (01) | DRG 807 ==
PROVIDERS: Admitting Provider Nurse Practitioner Obstetrics & Gynecology; PCP Family Medicine; Visit Provider Nurse Practitioner Obstetrics & Gynecology
DX: O69.81X0 Labor and delivery complicated by cord around neck, without compression, not applicable or unspecified (principal); Z37.0 Single live birth; Z3A.39 39 weeks gestation of pregnancy
CPT/HCPCS: 59409; 36415; 59025; 80305; 81001; 85014; 85018; 85025; 86850; 87086; 94761; C1758; C9803; G0283; U0003; U0005

== ENCOUNTER → 2022-08-21 13:05 | Outpatient (CLI) | payer BC, SELFPAY ==
[2022-08-21 14:07] LABS: Basophils # 0.1 K/mm3 (0-0.2); Basophils % 1.3 % (0.1-2.0); Eosinophils # 0.2 K/mm3 (0.0-0.4); Eosinophils % 2.5 % (0.1-12.0); Hematocrit 43.8 % (37.0-47.0); Hemoglobin 14.1 g/dL (12.2-16.2); Lymphocytes # 2.1 K/mm3 (0.7-4.5); Mean Corpuscular HGB Conc 32.2 g/dL (31.8-35.4); Mean Corpuscular Hemoglobin 30.3 pg (27.0-31.2); Mean Corpuscular Volume 94.1 fl (81-99); Monocytes # 0.3 K/mm3 (0.1-1.0); Neutrophils % 60.2 % (37.0-80.0); Platelet Count 270 K/mm3 (142-424); Red Blood Count 4.65 M/mm3 (4.20-5.40); Red Cell Distribution Width 13.1 % (11.5-17.5); White Blood Count 6.6 K/mm3 (4.8-10.8)
[2022-08-21 15:11] LABS: Alanine Aminotransferase 58 U/L (12-78); Albumin Level 4.5 g/dl (3.5-5.0); Albumin/Globulin Ratio 1.7 (1.1-1.8); Alkaline Phosphatase 104 U/L (38-126); Anion Gap 10.3 mEq/L (5-15); Aspartate Amino Transferase 47 U/L (14-36); Bilirubin,Total 0.8 mg/dl (0.2-1.3); Blood Urea Nitrogen 16 mg/dl (7-17); Calcium 10.2 mg/dl (8.4-10.2); Carbon Dioxide 31 mmol/L (22.0-30.0); Chloride 105 mmol/L (98-107); Estimated Glomerular Filt Rate 68 ml/min (>60); GFR (African American) 82 ML/MIN (>60); Globulin 2.6 g/dL (1.3-3.2); Glucose 88 mg/dl (74-100); Potassium 4.3 mmoL/L (3.5-5.1); Sodium 142 mmol/L (136-145); Total Protein,Serum 7.1 g/dl (6.3-8.2)
[2022-08-21 17:14] LABS: HCG Qualitative, Serum Negative (Negative)
== END ==
PROVIDERS: PCP Family Medicine; Visit Provider Nurse Practitioner Obstetrics & Gynecology
DX: Z30.09 Encounter for other general counseling and advice on contraception (principal)
CPT/HCPCS: 36415; 80053; 84703; 85025

== ENCOUNTER 2022-08-25 07:42 | Day surgery (SDC) | payer BC, SELFPAY ==
[2022-08-21 11:22] VITALS: BMI 29.9
[2022-08-25] VITALS (15 sets, daily range): BP systolic 121–143; BP diastolic 67–87; PULSE 52–93; RESP 18; TEMP 36.1–36.3; O2SAT 97–100
[2022-08-25 08:09] LABS: Urine Pregnancy, HCG Qual. Negative (Negative)
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
--- NOTE | 2022-08-25 09:31 | EXP.OP.NOTE ---
Date of procedure: 08/25/22 Pre-op Diagnosis:: Desire for sterilization Post-op Diagnosis:: Desire for sterilization Procedure performed:: Laparoscopic bilateral salpingectomy Surgeon:: Can Rogers MD DIRECTOR [employer]CIAL SALES:: Bj Mcmahon Anesthesia: BAUDILIO Estimated blood loss (mL): 25 Clinical Note:: She is a 26-year-old 4 para 4 who expressed desire for sterilization the risk and benefits as well as irreversibility of bilateral salpingectomy were discussed with patient. Operative findings:: She had a normal-appearing uterus that was somewhat bulky as result of her recent . Ovaries and tubes appeared normal. The tubes were followed to the fimbriated end and appeared normal. The pelvis was visualized and appeared normal. The pelvis was normal. The upper abdomen appeared normal. Operative note:: She was taken to the operating room where general anesthesia was found be adequate. She was prepped and draped in normal sterile fashion in the semilithotomy position. A weighted speculum was placed in the vagina and the anterior lip of the cervix was grasped with a tenaculum. I then inserted a Stephany uterine manipulator into the cervical os. The balloon was then insufflated. I changed gloves and injected 10 cc of 0.5% ropivacaine around her umbilicus and made a small incision within the umbilicus. I inserted a Veress needle into the abdominal cavity. The peritoneal cavity was then insufflated with carbon dioxide gas to a pressure of 20 mmHg. I then inserted a 5 millimeter trocar under direct vision. I injected through and through the pubic hairline, made a small incision here and inserted an 8 mm trocar under direct vision. I identified the inferior epigastric artery on the left side, went lateral to these and injected through and through. I then placed a 5 mm trocar here under direct vision. The pelvis and upper abdomen were then inspected and the findings were as previously dictated. I grasped the right tube at the cornua and using harmonic scalpel on coagulation mode I cut through the tube. I then grasped the distal tube and using harmonic scalpel cut along the mesosalpinx. The tube was removed through 8 mm trocar site. This was similarly performed on the patient's left side. I then injected 30 cc of 0.5% ropivacaine into the pelvis. After assuring hemostasis the gas was let out of the abdomen and hemostasis was once again assured. The abdomen was then reinsufflated. The secondary trochars were removed under direct vision. The gas was let out her abdomen. The primary trocar was then removed. The 8 mm trocar site was closed deeply with 2-0 Vicryl suture followed by subcuticular 4-0 Monocryl suture. The 5 mm trocar sites were closed with subcuticular 4-0 Monocryl. Sterile dressings were applied. The patient tolerated the procedure well and was taken to the recovery room in excellent condition. All sponge instrument and needle counts were correct. The estimated blood loss was less than 25 cc. Condition: stable Disposition: PACU Specimens:: Bilateral fallopian tubes Complications:: None
--- NOTE | 2022-08-25 09:43 | P.PNANES_ITS ---
[facility] Anesthesia Record Part I Anesthesia Record I Intake, IV Amount: 400 Estimated blood loss (mL): 20 Urine output (mL): 0 Blood Pressure: 143/84 SaO2: 100 Pulse Rate: 93 Respiratory Rate: 18 Temperature: 97.0 F Patient is:: Drowsy Stable to PACU at:: 09:32
--- NOTE | 2022-08-25 10:12 | SUR.PHASEI ---
1006- detailed report called to espinoza lopez in post op. 1008- pt left in stable condition with espinoza lopez. All VSS, dressings CDI, bedrails up and bed in lowest position
--- NOTE | 2022-08-25 11:29 | P.PNANES_ITS ---
[facility] Anesthesia Record Part II Anesthesia Record Part II Discharge Time: 10:07 Destination: Surgical Day Care (OP Surgery) PACU nurse assessment reviewed?: Yes Patient Condition:: Good Anesthesia Complications:: None Swallowing reflex intact?: Yes Cyanosis?: No Blood Pressure: 138/87 Pulse Rate: 69 Temperature: 97.2 F Mental Status: Alert & Oriented Pain level:: 2 Nausea and/or vomitting:: None Intake, IV Amount: 0
== END 2022-08-25 10:40 | disposition home or self-care (01) ==
PROVIDERS: PCP Family Medicine; Visit Provider Nurse Practitioner Obstetrics & Gynecology
PROC: (CPT 58661; principal; 2022-08-25 08:45)
DX: Z30.2 Encounter for sterilization (principal)
CPT/HCPCS: 58661; 81025; 88302; 96374; J2405